=== PATIENT | female | born 1995 | race Caucasian/White ===

== ENCOUNTER → 2023-03-24 | Day surgery (SDC) | payer OTHER ==
[~2023-03-24] MED LIST: ACETAMINOPHEN/CODEINE 300MG - 30MG TAB ONE; ACETAMINOPHEN500 MG PO; CLEOCIN HCL300 MG PO; DEXAMETHASONE SOD PHOS INJ 4 MG/ML SDV ONE; EPHEDRINE SULFATE INJ 50 MG/ML VIAL ONE; FENTANYL CITRATE/PF 100MCG/2 ML INJ ONE; GLYCOPYRROLATE INJ 0.2 MG/ML VIAL ONE; KETOROLAC TROMETHAMINE 30 MG/ML VIAL ONE; LACTATED RINGER'S 1,000 ML ONE; LIDOCAINE 2%/ EPINEPHRINE 20ML MDV ONE; LIDOCAINE HCL 2% LOCAL INJ 5 ML SDV VIAL INJ ONE; METOCLOPRAMIDE HCL 10 MG/2ML VIAL ONE; MIDAZOLAM HCL 2 MG/2 ML VIAL ONE; ONDANSETRON HCL INJ 2MG/ML 2ML 2 MG/ML VIAL ONE; POVIDONE IODINE 0.05% 0.05 % ML PO ONE; PROBIOTIC PO; PROPOFOL IV EMULSION 10 MG/ML 20 ML VIAL ONE; SEVOFLURANE INHAL SOLN 250 ML PEN BTL ONE
[2023-03-24 16:15] VITALS: BP 117/71; PULSE 60; RESP 16; O2SAT 97
== END | disposition home or self-care (01) ==
LOC: OR 11:10
PROVIDERS: ATTEND Otolaryngology Otolaryngology/Facial Plastic Surgery
DX: R22.1 Localized swelling, mass and lump, neck (principal); L72.0 Epidermal cyst; F41.9 Anxiety disorder, unspecified
CPT/HCPCS: 21556; 81025; 87071; 87075; 87205; 88305; J1100; J1885; J2001 ×2; J2250; J2405; J2704; J2765; J3010; J7121; 88304